=== PATIENT | female | born 1950 | race Two or more races ===

== ENCOUNTER 2023-05-16 14:40 | Emergency (ER) | payer OTHER ==
[~2023-05-16] VITALS: Ht 165.1 cm; Wt 68.0 kg
[2023-05-16] MEDS ORDERED: GABAPENTIN600 MG PO (15:18)
[2023-05-16] MEDS ORDERED: SYNTHROID88 MCG PO (15:19)
[2023-05-16] MEDS ORDERED: CLONAZEPAM2 MG PO (15:19)
[2023-05-16] MEDS ORDERED: SIMVASTATIN20 MG PO (15:20)
== END 2023-05-16 21:31 | disposition home or self-care (01) ==
LOC: ER 14:40
PROVIDERS: General Practice
DX: J18.0 Bronchopneumonia, unspecified organism (principal); R53.81 Other malaise; Z91.041 Radiographic dye allergy status; Z91.013 Allergy to seafood; I10 Essential (primary) hypertension; Z20.822 Contact with and (suspected) exposure to COVID-19